=== PATIENT | female | born 1945 | race Caucasian/White ===

== ENCOUNTER 2021-11-23 22:56 | Emergency (ER) | payer OTHER ==
[~2021-11-23] VITALS: Ht 154.9 cm; Wt 61.2 kg
--- NOTE | 2021-11-23 23:10 | NUR ---
Dr. Tao at bedside for MSE
[2021-11-23] MEDS ORDERED: ACETAMINOPHEN ES 500 MG TABLET PO ONE (23:15)
[2021-11-23] MEDS ORDERED: IV NORMAL SALINE 1000 ML BAG IV ONE (23:15)
[2021-11-23] MEDS ORDERED: ACETAMINOPHEN ES 500 MG TABLET ONE (23:25)
[2021-11-23 23:31] LABS: HEMATOCRIT 35.2 % (31.2-41.9); MEAN CORPUSCULAR HEMOGLOBIN 29.5 uug (24.7-32.8); MEAN CORPUSCULAR VOLUME 87.9 fL (75.5-95.3); PLATELET COUNT (AUTO) 159 K/uL (179-408)
[2021-11-23 23:36] LABS: CARBON DIOXIDE 27 mmol/L (21-32); CHLORIDE 100 mmol/L (98-107); CREATININE 1.1 mg/dL (0.6-1.3); GLUCOSE 169 mg/dL (74-106); POTASSIUM 3.7 mmol/L (3.5-5.1); UREA NITROGEN, BLOOD 14 mg/dL (7-18)
--- NOTE | 2021-11-23 23:45 | NUR ---
Pt down at CT
[2021-11-23 23:49] LABS: ALANINE AMINOTRANSFERASE 26 U/L (14-59); ALKALINE PHOSPHATASE 87 U/L (50-136); ASPARTATE AMINOTRANSFERASE 29 U/L (15-37); BILIRUBIN,DIRECT 0.2 mg/dL (0.0-0.2); TOTAL PROTEIN, SERUM 6.7 g/dL (6.4-8.2)
[2021-11-23] MEDS ORDERED: FLUT16SP16 BNOSTRILS (23:56)
[2021-11-23] MEDS ORDERED: LISI2.5T14 PO (23:56)
[2021-11-23] MEDS ORDERED: BENZ-13 PO (23:56)
[2021-11-24] MEDS ORDERED: KETOROLAC TROMETHAMINE 30 MG INJ IVP ONE (01:30)
[2021-11-24] MEDS ORDERED: ONDANSETRON 4 MG/2 ML VIAL IV ONE ×2 (01:30→03:15)
[2021-11-24] MEDS ORDERED: KETOROLAC TROMETHAMINE 30 MG INJ ONE (01:33)
[2021-11-24] MEDS ORDERED: ONDANSETRON 4 MG/2 ML VIAL ONE (01:33)
[2021-11-24] MEDS ORDERED: ONDANSETRON ODT 4 MG TAB.RAPDIS ONE (03:14)
[2021-11-24] MEDS ORDERED: ONDANSETRON ODT 4 MG TAB.RAPDIS SL ONE (03:15)
[2021-11-24 04:27] LABS: *BILIRUBIN,URIN NEGATIVE (NEGATIVE); *BLOOD, URINE NEGATIVE (NEGATIVE); *CLARITY,URINE CLEAR (CLEAR); *COLOR,URINE YELLOW (YELLOW); *KETONES,URINE 1+ (NEGATIVE); *UROBILINOGEN,URINE 0.2 E.U./dl (NORMAL); LEUKOCYTE ESTERASE ,URINE NEGATIVE (NEGATIVE); NITRITE, URINE NEGATIVE (NEGATIVE); PH,URINE 5.5 (5.0-8.0); UGLUCOSE NEGATIVE (NEGATIVE)
[2021-11-24] MEDS ORDERED: ONDA4TAB11 PO (04:55)
--- NOTE | 2021-11-24 05:15 | NUR ---
Patient discharged to home in stable condition. Written and verbal after care instructions given. Patient verbalizes understanding of instructions. Stressed follow up or return to ER for worsening s/s.
[2021-11-24 05:26] VITALS: BP 117/48
== END 2021-11-24 05:27 | disposition home or self-care (01) ==
LOC: ER 22:56
DX: R50.9 Fever, unspecified (principal); R53.1 Weakness; Z20.822 Contact with and (suspected) exposure to COVID-19; Z91.81 History of falling
CPT/HCPCS: 70450; 71045; 80076; 80048; 83880; 85025; 84145; 85730; 87040 ×2; 84484; 36415; 93005; 83605; 99285; 74176; 96374; 96361; 96375; 87426; 81003; 87400; 87086; J1885; J2405; J7040 ×2; 87077; A9150; Q0162